=== PATIENT | female | born 2000 | race Caucasian/White ===

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

== ENCOUNTER 2024-04-08 15:47 | Emergency (ER) | payer BC, SELFPAY ==
[2024-04-08 16:02] VITALS: BP 129/67; PULSE 97; RESP 20; TEMP 37.1; O2SAT 100
--- NOTE | 2024-04-08 16:17 | ED.GENADULT ---
HPI - General Adult General Chief complaint: Extremity Injury, Lower Stated complaint: Right Foot/ Big Toe Skin Sore Time Seen by Provider: 04/08/24 16:08 Source: patient, RN notes reviewed and old records reviewed Mode of arrival: ambulatory Limitations: no limitations History of Present Illness HPI narrative: 24 year old female who presents to [facility] care with complaints of ingrown nail to the lateral aspect of the great toe nail for the past 2 weeks with some soreness and redness of tissue, Patient reports that she has been soaking her right great toe multiple times bur has been unable to get side of nail removed where ingrown. Patient reports that she has been taking some Ibuprofen for the discomfort. MD complaint: ingrown right great toenail Severity scale (1-10): 5 Treatments prior to arrival: NSAID and other (soaked toe) Related Data Allergies Allergy/AdvReac Type Severity Reaction Status Date / Time No Known Allergies Allergy Verified 05/22/21 15:33 Review of Systems Review of Systems: CONSTITUTIONAL: Denies fever, chills, or sweats. CARDIOVASCULAR: Denies chest pain, palpitations, or edema. RESPIRATORY: Denies cough or dyspnea. GASTROINTESTINAL: Denies abdominal pain, nausea, vomiting SKIN: Reports redness and swelling with tenderness to tissue at right lateral great toe nail Denies purulent drainage,, numbness,or pain beyond proportion MUSCULOSKELETAL: Denies myalgia. NEUROLOGIC: Denies headache, numbness All systems reviewed & are unremarkable except as noted in HPI and below PMFSH Past Medical History Medical History Depression Social History Social History Smoking status: Never smoker Alcohol intake: current Alcohol use details: social Substance use type: does not use Gender identity (if verbalized by the patient): Female Comments At time of signature, agree with nursing past medical, surgical, social and family history. There is no relevant family history pertinent to the presenting complaint Exam Narrative: GENERAL: Well-appearing, well-nourished, and in no acute distress. HEAD: Normocephalic, atraumatic. EYES: PERRLA and EOMI. ENT: Nares clear, no rhinorrhea or epistaxis. Mucous membranes moist. NECK: Supple. no lymphadenopathy CHEST: Clear to auscultation. No respiratory distress.SAO2 100% on room air HEART: Regular rate and rhythm. No murmur heard. Normal peripheral pulses. ABDOMEN: Soft, nontender, nondistended, normal active bowel sounds. EXTREMITIES: Normal range of motion. No edema. SKIN: Warm, dry. Erythema, tenderness, no warmth at lateral edge of right great toenail no drainage noted no vesicle formation. Patient states increased discomfort with ambulation. NEURO: No focal deficits. Alert and oriented x3. Course Course Emergency Course: Patient is aware of diagnosis, understands and agrees to treatment plan. Anticipatory guidance given. Patient agrees to follow-up as directed and is aware of reasons to seek care at the emergency department. Portions of this record may have been created with voice recognition software Level of Care: Express Care Visit Vital Signs Vital signs: Vital Signs Temperature 37.1 C 04/08/24 16:02 Pulse Rate 97 04/08/24 16:02 Respiratory Rate 20 04/08/24 16:02 Blood Pressure 129/67 04/08/24 16:02 Pulse Oximetry 100 04/08/24 16:02 Oxygen Delivery Room Air 04/08/24 16:02 Temperature 37.1 C 04/08/24 16:02 Pulse Rate 97 04/08/24 16:02 Respiratory Rate 20 04/08/24 16:02 Blood Pressure 129/67 04/08/24 16:02 Pulse Oximetry 100 04/08/24 16:02 Oxygen Delivery Room Air 04/08/24 16:02 Reviewed Medical Decision Making Differential Diagnosis Differential Diagnosis: pain right great toe, ingrown toenail right lateral nail, inflammation of tissue at side of nail right great toe Medical Record
== END 2024-04-08 16:25 | disposition home or self-care (01) ==
PROVIDERS: Emergency Provider Registered Nurse
DX: L60.0 Ingrowing nail (principal); F32.A Depression, unspecified
CPT/HCPCS: 99213; G0463